=== PATIENT | male | born 1970 ===

== ENCOUNTER 2022-08-01 11:18 | Outpatient (REF) | payer OTHER, SELFPAY ==
[2022-08-01 12:05] LABS: Influenza A PCR NEGATIVE (Negative); Influenza B PCR NEGATIVE (Negative); Resp Syncy Virus RNA Qual PCR NEGATIVE (Negative); SARS COV2 PCR INHOUSE NEGATIVE (Negative)
== END 2022-08-01 11:19 | disposition home or self-care (01) ==
LOC: HO.LNP 11:18
PROVIDERS: Visit Provider Nurse Practitioner Family
DX: Z20.822 Contact with and (suspected) exposure to COVID-19 (principal); R09.89 Other specified symptoms and signs involving the circulatory and respiratory systems
CPT/HCPCS: 0241U

== ENCOUNTER 2024-08-14 08:20 | Outpatient (REF) | payer OTHER, SELFPAY ==
[2024-08-14 18:49] LABS: Influenza A PCR NEGATIVE (Negative); Influenza B PCR NEGATIVE (Negative); Resp Syncy Virus RNA Qual PCR NEGATIVE (Negative); SARS COV2 PCR INHOUSE POSITIVE (Negative)
== END 2024-08-14 08:21 | disposition home or self-care (01) ==
LOC: HO.LAB 08:20
PROVIDERS: Nurse Practitioner Family; Visit Provider Nurse Practitioner Family
DX: J06.9 Acute upper respiratory infection, unspecified (principal)
CPT/HCPCS: 0241U

== ENCOUNTER 2024-08-14 08:20 | Outpatient (AMB) | payer OTHER, SELFPAY ==
--- NOTE | 2024-08-14 09:46 | AM.OFFWIN_ITS ---
Intake Vital Signs 08/14/24 09:50 Height 5 ft 6 in Weight 228 lb BMI 36.8 BP 150/93 H Blood Pressure Location Rt brachial Position Sitting Respiration 16 Pulse 83 Pulse Source Pulse Oximeter Temp 97.7 F Temp Source Temporal Artery Scan Pulse Oximetry (%) 97 Oxygen Delivery Method Simple Mask Intake Visit Reasons: EST/CONGESTION/CHILLS/BODY ACHE Intake Note: patient here c/o congestion, chills and body aches Patient Tobacco Use Status: Never used Tobacco Weather Analyst Required: No Allergies No Known Allergies Allergy (Verified 08/14/24 10:00) Medication List - Last Reconciled 08/14/24 by Sania Yin CNP fluticasone propionate 50 mcg/actuation 1 spray intranasal DAILY ssqpamvj-bst-nqfsp-vit K-lycop 400-20-300 mcg (One-A-Day Men's Multivitamin) tabs PO Do you need a note to return to daycare/school/sports/work: Yes HPI HPI Comments History of Present Illness Details The patient is a 54-year-old male presenting with symptoms of acute viral upper respiratory infection. The symptoms began yesterday afternoon, with the onset of a severe cough, facial pressure, nasal congestion, eye pain, generalized aches, and chills. The patient reports the symptoms worsened throughout the day, noting an increase in symptom severity during the evening. He describes the cough as dry and occasionally accompanied by wheezing, pa rticularly noticeable upon deep exhalation. There was no fever, but chills were present along with noticeable discomfort in the nasal region. The patient does not report any difficulty breathing, headaches, or sore throat, and denies any known exposure to sick contacts. He has not been taking any medications recently, although he has used Flonase in the past. 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 [facility] Social History Patient Tobacco Use Status: Never used Tobacco Review of Systems Const Details: Denies chills, Denies fatigue, Denies fever(s), Denies headache(s) and Denies weakness ENT Reports as per HPI Cardiac Denies chest pain, Denies claudication, Denies leg edema, Denies lightheadedness, Denies palpitations, Denies dyspnea, Denies dyspnea on exertion, Denies orthopnea and Denies other (Loss of consciousness) Resp Reports cough, Denies excessive phlegm production, Denies dyspnea, Denies dyspnea on exertion, Denies snoring and Denies wheezing Physical Exam Vital Signs: Last Vital Signs Temp 97.7 F 08/14/24 09:50 Pulse 83 08/14/24 09:50 Resp 16 08/14/24 09:50 BP 150/93 H 08/14/24 09:50 Pulse Ox 97 08/14/24 09:50 Oxygen Delivery Method Simple Mask 08/14/24 09:50 BMI result Body Mass Index 36.8 Const Other: General: comfortable and no acute distress Orientation/consciousness: patient oriented x3 ENT Head is normocephalic Bilateral ear canal and TM are normal Nasal turbinates with erythema Oropharynx is pink and moist Sinuses are nontender with palpation No auricular or cervical lymphadenopathy Chest Chest palpation & inspection: normal inspection of the chest Resp Auscultation: clear to auscultation bilaterally Cardiac Palpation: normal PMI Heart sounds: S1 normal heart sound present, S2 normal heart sound present, no gallops, no murmur, no rubs Assessment & Plan Assessment & Plan (1) Viral upper respiratory illness: Code(s): J06.9 - Acute upper respiratory infection, unspecified Plan: Recommended nasal swab testing for COVID-19, influenza, and RSV to confirm viral etiology. (2) Allergic rhinitis: Code(s): J30.9 - Allergic rhinitis, unspecified Plan: Suggested use of Flonase nasal spray and prescribed Zyrtec 10 mg daily to be taken orally to alleviate allergy symptoms. Encourage the consumption of fluids. Advised the use of Tylenol or Ibuprofen as needed for discomfort. Plan I discussed with the patient that the symptoms are likely consistent with a viral upper respiratory infection or allergy-related etiology. To confirm the di agnosis, I advised conducting nasal swab tests for COVID-19, influenza, and RSV and explained that results are expected later today. I discussed symptomatic relief through hydration and zeke-whx-jzhukbj medications, including Tylenol for pain and antihistamines for allergy symptoms. We reviewed the temporary use of a nasal steroid spray. I advised him to return on Monday, the 6th, if symptoms persist or worsen, and informed him of the measures to follow to monitor his condition. A medical note has been provided for extended rest from work duties if necessary. Medications: New cetirizine (Zyrtec) 10 mg PO DAILY 30 caps 1RF 30 days Patient Instructions: - Undergo prescribed nasal swab testing for viral infections. - Increase fluid intake. - Use Tylenol or Ibuprofen for pain relief as needed. - Take Zyrtec 10 mg once daily. - Resume using Flonase nasal spray as needed for nasal symptoms. - Rest and monitor symptoms; return if they worsen or do not improve by Monday. Patient was informed and verbally consented to the use of an ambient scribe for clinic note documentation during this visit. Coding Level of Care Code Est Pt Level 3 (35610) Diagnoses Viral upper respiratory illness J06.9 Allergic rhinitis J30.9
[2024-08-14 09:50] VITALS: BP 150/93; PULSE 83; RESP 16; TEMP 36.5; O2SAT 97; BMI 36.8
== END 2024-08-14 17:05 | disposition home or self-care (01) ==
PROVIDERS: Visit Provider Nurse Practitioner Family
DX: J06.9 Acute upper respiratory infection, unspecified (principal); J30.9 Allergic rhinitis, unspecified

== ENCOUNTER 2025-04-24 08:31 | Outpatient (AMB) | payer OTHER, SELFPAY ==
[2025-04-24 08:36] VITALS: PULSE 84; TEMP 36.6; O2SAT 96; BMI 37.0
--- NOTE | 2025-04-24 08:36 | AM.OFFWIN_ITS ---
Intake Vital Signs 04/24/25 08:36 Height 5 ft 6 in Weight 229 lb 6 oz BMI 37.0 Pulse 84 Pulse Source Pulse Oximeter Temp 97.8 F Temp Source Oral Pulse Oximetry (%) 96 Oxygen Delivery Method Room Air Intake Visit Reasons: EP Bee sting, red, swelling, muscle pain Patient Tobacco Use Status: Never used Tobacco Septic Cleaner Required: No Allergies No Known Allergies Allergy (Verified 04/24/25 08:39) Do you need a note to return to daycare/school/sports/work: Yes HPI HPI Comments History of Present Illness Details History - The patient is a 54-year-old male pres enting with a bee sting. - The bee sting occurred two to three da ys ago, initially without redness, which developed one to two days post-sting. - He was mowing the lawn and got stung m ultiple times. - The patient reports localized pain and muscle tightness upon movement, but denies any fever or chills. - There is no history of allergic reacti ons to bee stings, and no systemic symptoms such as chest pain, shortness of breath, or swelling of the tongue. - He denies CP, SOB, wheezing, lip swell ing, or joint pain. Physical Exam General: Cooperative, healthy appearing, comfortable, no acute distress and well developed Orientation: Patient oriented x3 Limitations: No limitations Respiratory: Normal respiratory effort and able to speak in complete sentences. Clear to auscultation bilaterally. No w/r/r noted. Cardiovascular: RRR, no m/r/g noted. Normal S1 and S2. No m/r/g noted Skin: Flat non-tender blanchable erythematous area noted on the left upper inner thigh. Slight warmth noted. No streaking noted. Patient was informed and verbally consented to the use of an ambient scribe for clinic note documentation during this visit [facility] Social History Patient Tobacco Use Status: Never used Tobacco Review of Systems Const All systems reviewed & are unremarkable except as noted in HPI and below Physical Exam Vital Signs: Last Vital Signs Temp 97.8 F 04/24/25 08:36 Pulse 84 04/24/25 08:36 Pulse Ox 96 04/24/25 08:36 Oxygen Delivery Method Room Air 04/24/25 08:36 BMI result Body Mass Index 37.0 Assessment & Plan Assessment & Plan (1) Bee sting reaction: Code(s): T63.441A - Toxic effect of venom of bees, accidental (unintentional), initial encounter Qualifiers: Encounter type: initial encounter Injury intent: accidental or unintentional Qualified Code(s): T63.441A - Toxic effect of venom of bees, accidental (unintentional), initial encounter Plan Most likely bee sting, allergic reaction vs cellulitis Plan - keep area clean and dry - ice to the area - Benadryl as needed - tylenol or Motrin as needed - Keflex 4 times a day for 7 days - follow up with PCP Medications: New cephalexin 500 mg PO Q6H 28 caps 0RF Coding Level of Care Code Est Pt Level 3 (90368) Diagnoses Bee sting reaction, accidental or unintentional, initial encounter T63.441A Encounter type: initial encounter Injury intent: accidental or unintentional
--- OUTSIDE RECORDS SUMMARY | 2025-04-24 08:43 | XMS_ITS | Clinical Summary ---
Author Organization [facility] [address] [facility] Address [address] [place] [address] Phone Care Team Providers Care Relocation Counselor Name Role Phone Patrizia Baker MD Primary Care Provider [phone] Allergies No known active allergies Medications omeprazole (PRILOSEC) 20 mg tablet,delayed release (DR/EC) Take 1 Tab by mouth daily. 08/20/2019 Active valACYclovir (VALTREX) 1 gram tablet Take 2 Tablets by mouth 2 times daily. 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 Heartburn 07/28/2010 Obesity, unspecified 07/28/2010 Immunizations Name Administration Dates Next Due Influenza Quadravalent, MDCK , 0.5ml, preservative free (Flucelvax) 6mo and older 08/20/2019 Influenza trivalent, 0.5mL, preservative free (Fluarix; FluLaval; Fluzone) ages 6mo and older (Afluria) 3 years and older 07/28/2010 Td Tetanus diptheria (Tdvax) 7yo and older 08/20 Tdap Tetanus diptheria acell ular pertussis (Boostrix; Adacel) 7yo and older 05/05/2008 Surgical History Surgery Date Site/Laterality Comments ESOPHAGOGASTRODUODENOSCOPY PROCEDURE: NE ESOPHAGOGASTRODUODENOSCOPY TRANSORAL DIAGNOSTIC; COMMENT: small haitus henia with mild gastroesophageal reflux. otherrwise normal upper GI series Medical History Medical History Date Comments HH (hiatus hernia) 2008 DX:HH (hiatus hernia); COMMENT: UGI Gastroesophageal reflux DX:Gastr oesophageal reflux; COMMENT: mild Chronic back pain DX:Chronic jace k pain Obesity, unspecified 07/28/2010 DX:Obesity, unspecified Hiatal hernia 08/23/2011 DX:Hiatal hernia Historical Medical DX 08/23/2011 DX:Periana l condylomata Family History Relation Name Status Comments Brother 1 Alive healthy Brother 2 Alive healthy Daughter 1 Alive healthy, asthma Daughter 2 Alive healthy Father Alive healthy Maternal Grandfather unknown Maternal Grandmother Alive healthy Mother Alive healthy Paternal Grandfather old age Paternal Grandmother old age Sister Alive healthy Social History Tobacco Use Types Packs/Day Years Used Date Smoking Tobacco: Never Smokeless Tobacco: Never Tobacco Cessation:Counseling Given: Not Answered Alcohol Use Standard Drinks/Week Comments Yes 5 (1 standard drink = 0.6 oz pur e alcohol) Sex and Gender Information Value Date Recorded Sex Assigned at Not on file Legal Sex Male 4:48 PM EST Gender Identity Not on file Sexual Orientation Not on file Obstetrics History Last Filed Vital Signs Vital Sign Reading Time Taken Comments Blood Pressure 156/98 10/29/2024 8:32 AM EST Pulse 90 10/29/2024 8:32 AM EST Temperature 36.7 C (98.1 F) 10/29/2024 8:32 AM EST Respiratory Rate 16 10/29/2024 8:32 AM EST Oxygen Saturation - - Inhaled Oxygen Concentration - - Weight 104 kg (229 lb) 10/29/2024 8:32 AM EST Height 167.6 cm (5' 6 ) 10/29/2024 8:32 AM EST Body Mass Index 36.96 10/29/2024 8:32 AM EST Plan of Treatment Health Maintenance Due Date Last Done Comments Hepatitis B Vaccines (1 of 3 - 19+ 3-dose series) 1991 Pneumococcal Vaccine: 50+ Years (1 of 1 - PCV) 2022 Zoster Vaccines (1 of 2) 2022 Social Influencers of Health Screening 08/10/2022 COVID-19 Vaccine ( season) 2024 06/22/2023, 07/16/2021, 10/20/2020, Additional history exists Depression Screening 09/11/2024 Influenza Vaccine (#1) 2025 3, 08/20/2019, 07/28/2010 Colorectal Cancer Screening: Colonoscopy 05/01/2029 05/01/2024 Cholesterol Screening (Lipid Panel) 10/29/2029 10/29/2024, 08/23/2011 DTaP,Tdap,and Td Vaccines (4 - Td or Tdap) 07/27/2033 07/27/2023, 08/20/2019, 05/05/2008 HIV Screening Completed 10/29/2024 Hepatitis C Screening Completed 10/29/2024, 025 HIB Vaccines Aged Out No longer eligi ble based on patient's age to complete this topic HPV Vaccines Aged Out No longer eligi ble based on patient's age to complete this topic Hepatitis A Vaccines Aged Out No long er eligible based on patient's age to complete this topic IPV Vaccines Aged Out No longer eligi ble based on patient's age to complete this topic MMR Vaccines Aged Out No longer eligi ble based on patient's age to complete this topic Meningococcal ACWY Vaccine Aged Out N o longer eligible based on patient's age to complete this topic Meningococcal B Vaccine Aged Out No l onger eligible based on patient's age to complete this topic RSV Immunization Patients Under 20 months Aged Out No longer eligible based on patient's age to complete this topic Varicella Vaccines Aged Out No longer eligible based on patient's age to complete this topic Procedures Procedure Name Priority Date/Time Associated Diagnosis Comments HEPATITIS PANEL, ACUTE WITH REFLEX TO CONFIRMATION Routine 10/29/2024 10:22 AM EST Screening examination for STD (sexually transmitted disease) HIV 1, 2 ANTIBODY, P24 ANTIGEN WITH REFLEX TO DIFFERENTIATION Routine 10/29/2024 10:22 AM EST Screening examination for STD (sexually transmitted disease) LIPID PANEL WITH REFLEX TO DIRECT LDL Routine 10/29/2024 10:22 AM EST Adult general medical examination Screening for prostate cancer HM COLONOSCOPY Routine 05/01/2024 from Last 3 Months or Most Recently Relevant to Health Maintenance Results * HIV 1,2 antibody, p24 antigen with reflex to differentiation (10/29/2024 10:22 AM EST) [facility] HIV Combo AB/AG Negative Negative LAB CHEMISTRY METHOD 10/29/2024 2:11 PM [facility] Blood Venous blood specimen / Unknown Venipuncture / Unknown 10/29/2024 10:22 AM EST 10/29/2024 10:22 AM EST [facility] - 10/29/2024 2:11 PM EST This assay is a 4th generation assay allowing for earlier detection of HIV infection by detecting the presence of the HIV-1 p24 antigen as well as the traditional antibodies to HIV type 1 (including group O) and type 2. Use of a 4th generation assay is the current CDC recommendation for HIV screening. Dai FISCHER LAB BLOOD ORDERABLES Fin al Result [facility] [address] [place] [address], * (ABNORMAL) Lipid panel with reflex to direct LDL (10/29/2024 10:22 AM EST) [facility] Cholesterol 235(H) 0 - 200 mg/dL LAB CHEMISTRY METHOD 10/29/2024 1:24 PM [facility] Triglycerides 102 0 - 150 mg/dL LAB CHEMISTRY METHOD 10/29/2024 1:24 PM [facility] HDL 57 >=40 mg/dL LAB CHEMISTRY METHOD 10/29/2024 1:24 PM [facility] LDL Calculated 158(H) 0 - 100 mg/dL LAB CHEMISTRY METHOD 10/29/2024 1:24 PM [facility] VLDL Cholesterol Andreas 20.4 mg/dL LAB CHEMISTRY METHOD 10/29/2024 1:24 PM [facility] Non HDL Chol. (LDL+VLDL) 178(H) <145 mg/dL LAB CHEMISTRY METHOD 10/29/2024 1:24 PM [facility] Chol/HDL Ratio 4.1 0.0 - 4.4 LAB CHEMISTRY METHOD 10/29/2024 1:24 PM EST [facility] Blood Venous blood specimen / Unknown Venipuncture / Unknown 10/29/2024 10:22 AM EST 10/29/2024 10:22 AM EST [facility] Anali FISCHER LAB BLOOD ORDERABLES Fin al Result [facility] [address] [place] [address], [place] [phone] * Hepatitis panel, acute with reflex to confirmation (10/29/2024 10:22 AM EST) Pathologist [facility] Hepatitis B Surface Ag Negative Negative LAB CHEMISTRY METHOD 10/29/2024 2:12 PM EST [facility] Hepatitis A Antibody IgM Negative Negative LAB CHEMISTRY METHOD 10/29/2024 2:12 PM EST [facility] Hep B Core IgM Negative Negative LAB CHEMISTRY METHOD 10/29/2024 2:12 PM EST [facility] Hepatitis C Antibody Negative Negative LAB CHEMISTRY METHOD 10/29/2024 2:12 PM EST [facility] Blood Venous blood specimen / Unknown Venipuncture / Unknown 10/29/2024 10:22 AM EST 10/29/2024 10:22 AM EST Dai FISCHER LAB BLOOD ORDERABLES Fin al Result [facility] [address] [place] [address], [place] [phone] * Hm Colonoscopy (05/01/2024) Pathologist [facility] Colonoscopy Abstracted, No interpretation Anatomical Region Laterality Modality Other Historical Provider MD HEALTH MAINTENANCE Final Result from Last 3 Months or Most Recently Relevant to Health Maintenance Insurance [facility] Care Teams Relocation Counselor Relationship Specialty Start Date End Date Patrizia Baker MD [address] [place] [address] PCP - General 11/04/22
== END 2025-04-24 09:22 | disposition home or self-care (01) ==
PROVIDERS: Visit Provider Physician Assistant Medical
DX: T63.441A Toxic effect of venom of bees, accidental (unintentional), initial encounter (principal)

== ENCOUNTER 2025-07-08 07:59 | Outpatient (AMB) | payer OTHER, SELFPAY ==
--- OUTSIDE RECORDS SUMMARY | 2025-07-08 08:03 | XMS_ITS | Clinical Summary ---
Author Organization [facility] [address] [facility] Address [address] [place] [address] Phone Care Team Providers Care Legislative Advocate Name Role Phone Patrizia Baker MD Primary Care Provider [phone] Allergies No known active allergies Medications omeprazole [...] 08/23/2011 Heartburn 07/28/2010 Obesity, unspecified 07/28/2010 Immunizations Immunization Administration Dates Next Due Influenza Quadravalent, MDCK , 0.5ml, preservative free (Flucelvax) 6mo and older 08/20/2019 Influenza trivalent, 0.5mL, preservative free (Fluarix; FluLaval; Fluzone) ages 6mo and older (Afluria) 3 years and older 07/28/2010 Td Tetanus diptheria (Tdvax) 7yo and older 08/20 Tdap Tetanus diptheria acell ular pertussis (Boostrix; Adacel) 7yo and older 05/05/2008 Surgical History Surgery Date Site/Laterality Comments ESOPHAGOGASTRODUODENOSCOPY PROCEDURE: [place] ESOPHAGOGASTRODUODENOSCOPY TRANSORAL DIAGNOSTIC; COMMENT: small haitus henia [...] 2022 Social Influencers of Health Screening 08/10/2022 Depression Screening 09/11/2024 COVID-19 Vaccine ( season) 2025 06/22/2023, 07/16/2021, 10/20/2020, Additional history exists Influenza Vaccine (#1) 2025 3, 08/20/2019, 07/28/2010 Colorectal Cancer Screening: Colonoscopy 05/01/2029 05/01/2024 Cholesterol Screening (Lipid Panel) 10/29/2029 10/29/2024, 08/23/2011 DTaP,Tdap,and Td Vaccines (4 - Td or Tdap) 07/27/2033 07/27/2023, 08/20/2019, 05/05/2008 RSV Immunization Adult Patients (1 - 1-dose 75+ series) 2047 HIV Screening Completed 10/29/2024 Hepatitis C Screening [...] Name Priority Date/Time Associated Diagnosis Comments HEPATITIS C ANTIBODY Routine 10/29/2024 10:22 AM EST Adult general medical examination Screening examination for STD (sexually transmitted disease) [...] Recently Relevant to Health Maintenance Results * Hepatitis C antibody (10/29/2024 10:22 AM EST) Hepatitis C Antibody Negative Negative LAB CHEMISTRY METHOD 10/29/2024 4:10 PM EST [facility] Blood Venous blood specimen / Unknown Venipuncture / Unknown 10/29/2024 10:22 AM EST 10/29/2024 10:22 AM EST Dai Anali Barros PA LAB BLOOD ORDERABLES Fin al Result Performing Organization Address [facility]/State/ZIP Co de Phone Number [facility] [address] [place] [address], * HIV 1,2 antibody, p24 antigen with reflex to differentiation (10/29/2024 10:22 AM EST) HIV Combo AB/AG Negative Negative LAB CHEMISTRY METHOD 10/29/2024 2:11 PM EST [facility] Blood Venous blood specimen / Unknown Venipuncture / Unknown 10/29/2024 10:22 AM EST 10/29/2024 10:22 AM EST Narrative [facility] - 10/29/2024 2:11 PM EST This [...] FISCHER LAB BLOOD ORDERABLES Fin al Result Performing Organization Address City/[facility]/ZIP Co de Phone Number [facility] [address] [place] [address], [place] [phone] * (ABNORMAL) Lipid panel with reflex to direct LDL (10/29/2024 10:22 AM EST) Cholesterol 235(H) 0 - 200 mg/dL LAB CHEMISTRY METHOD 10/29/2024 1:24 PM EST [facility] Triglycerides 102 0 - 150 mg/dL LAB CHEMISTRY METHOD 10/29/2024 1:24 PM EST [facility] HDL 57 >=40 mg/dL LAB CHEMISTRY METHOD 10/29/2024 1:24 PM [facility] LDL Calculated 158(H) 0 - 100 mg/dL LAB CHEMISTRY METHOD 10/29/2024 1:24 PM EST [facility] VLDL Cholesterol Andreas 20.4 mg/dL LAB CHEMISTRY METHOD 10/29/2024 1:24 PM EST [facility] Non HDL Chol. (LDL+VLDL) 178(H) <145 mg/dL LAB CHEMISTRY METHOD 10/29/2024 1:24 PM [facility] Chol/HDL Ratio 4.1 0.0 - 4.4 LAB CHEMISTRY METHOD 10/29/2024 1:24 PM [facility] Blood Venous blood specimen / Unknown Venipuncture / Unknown 10/29/2024 10:22 AM EST 10/29/2024 10:22 AM EST Dai FISCHER LAB BLOOD ORDERABLES Fin al Result [facility] [address] [place] [address], * Colonoscopy (05/01/2024) Colonoscopy Abstracted, No interpretation Anatomical Region Laterality Modality Other Historical Provider HEALTH MAINTENANCE Final Result from Last 3 Months or Most Recently Relevant to Health Maintenance Insurance [facility] Care Teams Legislative Advocate Relationship Specialty Start Date End Date Patrizia Baker MD [address] [place] [address] PCP - General 11/04/22
[2025-07-08 08:06] VITALS: BP 148/100; PULSE 89; TEMP 36.8; O2SAT 98; BMI 37.1
--- NOTE | 2025-07-08 08:06 | MHC.OFFWIV ---
Intake Vital Signs 07/08/25 08:06 Height 5 ft 6 in Weight 230 lb BMI 37.1 BP 148/100 H Blood Pressure Location Lt brachial Position Sitting Pulse 89 Pulse Source Pulse Oximeter Temp 98.2 F Temp Source Oral Pulse Oximetry (%) 98 Oxygen Delivery Method Room Air Intake Visit Reasons: ep both ears clogged left one is worse Intake Note: Patient presents with bilateral blocked ears, left one being the worst x2 weeks. Patient Tobacco Use Status: Never used Tobacco Allergies No Known Allergies Allergy (Verified 07/08/25 08:08) HPI HPI Comments History of Present Illness Details History - The patient is a 54-year-old male presenting with ear discomfort due to impacted cerumen. - He states that he started with pain and pressure in both ears last week. - Reports pain in the left ear, worse than the right. - Has a history of undergoing ear irrigation for similar issues. - He denies cold symptoms, [place], dizziness, fever, chills, CP, or SOB. Physical Exam General: Cooperative, healthy appearing, comfortable, no acute distress and well developed Head: Normal to inspection Ears: External ears normal bilaterally. No tragus or mastoid tenderness noted. Cerumen noted in the canals bilaterally. TM's not visualized. Face and sinus: Normal facial exam. No TTP of the sinuses. Neck: Normal visual inspection. Full ROM. No lymphadenopathy noted. Respiratory: Normal respiratory effort and able to speak in complete sentences. Clear to auscultation bilaterally. No w/r/r noted. Cardiac: RRR, no m/r/g noted. Normal S1 and S2 noted. Skin: No rashes or lesions noted Patient was informed and verbally consented to the use of an ambient scribe for clinic note documentation during this visit. [facility] Social History Patient Tobacco Use Status: Never used Tobacco Review of Systems Const All systems reviewed & are unremarkable except as noted in HPI and below Physical Exam Vital Signs: Last Vital Signs Temp 98.2 F 07/08/25 08:06 Pulse 89 07/08/25 08:06 BP 148/100 H 07/08/25 08:06 Pulse Ox 98 07/08/25 08:06 Oxygen Delivery Method Room Air 07/08/25 08:06 BMI result Body Mass Index 37.1 Office Procedures Cerumen Removal From which ear canal was the cerumen removed: bilateral Removal: irrigation Notes: patient tolerated procedure well, no complications and ear canal clear [id number] Irrigation/Lavage Assessment & Plan Assessment & Plan (1) Cerumen impaction: Code(s): H61.20 - Impacted cerumen, unspecified ear Qualifiers: Laterality: bilateral Qualified Code(s): H61.23 - Impacted cerumen, bilateral Plan Plan - Ear irrigation will be performed to address the impacted cerumen. - Follow-up examination post-irrigation to confirm resolution of the issue. Orders: Orders AMB Cerumen Removal Today H61.23 - Impacted cerumen, bilateral Coding Level of Care Code Est Pt Level 3 (36134) Diagnoses Bilateral impacted cerumen H61.23 Laterality: bilateral CPT Codes Office Procedure - CPT: 50403-Rje Irrigation/Lavage ([id number])
== END 2025-07-08 09:03 | disposition home or self-care (01) ==
PROVIDERS: Visit Provider Physician Assistant Medical
DX: H61.23 Impacted cerumen, bilateral (principal)

== ENCOUNTER → 2025-07-08 07:59 | Outpatient (BNVA) | payer OTHER, SELFPAY | PROVIDERS: Visit Provider Physician Assistant Medical | DX: H61.23 Impacted cerumen, bilateral (principal) | CPT/HCPCS: 69209 ==